=== PATIENT | male | born 1975 | race Caucasian/White ===

== ENCOUNTER 2021-08-30 06:41 | Outpatient (CLI) | payer BC, SELFPAY ==
[2021-08-30 07:05] VITALS: BMI 27.8
--- NOTE | 2021-08-30 07:06 | ECG_ITS ---
[facility] Test Date: 2021-08-30 Pat Name: Kenneth Hopkins Department: Room: Gender: Male [employer] Practitioner: Josefina Loya : 1975 Requested By: Raphael Carvajal Order Number: [id number] Fletcher MD: Melissa Rodriguez M.D. Interpretive Statements NAME OF STUDY: TREADMILL STRESS TEST INDICATION: Exertional chest pain Baseline blood pressure of 134/78 mm Hg, heart rate of 73 beats per minute and oxygen saturation of 95%. EKG showed normal sinus rhythm, normal axis with nonspecific T wave inversion in lead III and aVF. The patient exercised for 12 minutes 49 seconds on a standard Reji protocol. Patient attained a maximum heart rate of 179 beats per minute(101% of the maximum predicted heart rate) with a blood pressure at the peak exercise of 180/75 mm Hg and oxygen saturation of 94%. The EKG at the peak exercise revealed sinus tachycardia with no significant ST-T wave changes. Patient did not have any chest pain or any significant arrhythmis with the exercise. The study was terminated due to exertional fatigue and shortness of breath. During the recovery phase, there were no new changes. Isolated PVCs and PVC couplets noted in recovery. Blood pressure at the end of the recovery phase was 127/82 mm Hg with a heart rate of 87 beats per minute and oxygen saturation 92%. CONCLUSION: 1. Normal EKG response to treadmill exercise. 2. No exercise-induced chest pain or cardiac arrhythmia. 3. Excellent exercise tolerance, attained a maximum of 17.2 METs. Maximum VO2 of 60.2 mL/kg/min. 4. Baseline normal blood pressure with normal response to exercise. Electronically Signed On 08-30-2021 18:26:32 CDT by Melissa Rodriguez M.D. [email or web address]
[2021-08-30 07:45] VITALS: BP 127/82; PULSE 90
== END 2021-08-30 06:42 | disposition home or self-care (01) ==
PROVIDERS: PCP Family Medicine; Visit Provider Family Medicine
DX: R07.89 Other chest pain (principal)
CPT/HCPCS: 93017